=== PATIENT | female | born 1980 | race Caucasian/White ===

== ENCOUNTER 2023-08-03 20:25 | Emergency (ER) | payer BC, OTHER ==
[~2023-08-03] VITALS: Ht 162.6 cm; Wt 89.8 kg
[2023-08-03 20:31] VITALS: BP_SYST 147; PULSE 98; RESP 20; TEMP 97.6; O2SAT 100
[2023-08-03 22:10] LABS: INFLUENZA TYPE A Negative (NEGATIVE); INFLUENZA TYPE B NEGATIVE (NEGATIVE)
[2023-08-03] MEDS ORDERED: ALBMDI INH (22:23)
[2023-08-03] MEDS ORDERED: PSEU30TA36 PO (22:31)
== END 2023-08-03 22:39 | disposition home or self-care (01) ==
LOC: SED 20:25
DX: J20.9 Acute bronchitis, unspecified (principal); R05.9 Cough, unspecified; R09.89 Other specified symptoms and signs involving the circulatory and respiratory systems; Z79.899 Other long term (current) drug therapy; Z20.822 Contact with and (suspected) exposure to COVID-19
CPT/HCPCS: 36415; 71045; 99284

== ENCOUNTER 2023-10-01 21:42 | Emergency (ER) | payer BC, OTHER ==
[~2023-10-01] VITALS: Ht 162.6 cm; Wt 83.9 kg
[~2023-10-01 21:42] MED LIST: ALBMDI INH; PSEU30TA36 PO
[2023-10-01 21:58] VITALS: BP_SYST 136; PULSE 95; RESP 16; TEMP 97.8; O2SAT 98
[2023-10-01] MEDS: KETOROLAC TROMETHAMINE 60 MG/2 ML VIAL IM ONE (22:48)
[2023-10-01] MEDS ORDERED: HYDR-3917 PO (23:02)
[2023-10-01 23:09] VITALS: BP_SYST 136; PULSE 95; RESP 16; TEMP 97.8; O2SAT 98
== END 2023-10-01 23:08 | disposition home or self-care (01) ==
LOC: SED 21:42
DX: S89.82XA Other specified injuries of left lower leg, initial encounter (principal); Z79.899 Other long term (current) drug therapy; W22.09XA Striking against other stationary object, initial encounter; Y93.01 Activity, walking, marching and hiking; Y92.89 Other specified places as the place of occurrence of the external cause; Y99.8 Other external cause status
CPT/HCPCS: 99283; 29505; 73560; 96372; J1885